=== PATIENT | female | born 2000 | race Caucasian/White ===

== ENCOUNTER 2018-09-11 20:02 | Outpatient (CLI) | payer OTHER ==
[2018-09-11 21:20] LABS: ADD UMIC YES; UR ASCORBIC ACID NEGATIVE (NEGATIVE); UR BACTERIA FEW /HPF (NONE SEEN); UR BILIRUBIN (Dip) NEGATIVE (NEGATIVE); UR BLOOD (Dip) NEGATIVE (NEGATIVE); UR CLARITY SLIGHTLY CLOUDY (CLEAR); UR COLOR YELLOW (YELLOW); UR GLUCOSE (Dip) NEGATIVE (NEGATIVE); UR KETONES (Dip) NEGATIVE (NEGATIVE); UR LEUKOCYTE ESTERASE (Dip) 2+ Leu/ul (NEGATIVE); UR NITRITE (Dip) NEGATIVE (NEGATIVE); UR RBC 1 /HPF (0-5); UR SPECIFIC GRAVITY (Dip) 1.014 (1.003-1.030); UR SQUAMOUS EPITHELIAL CELL MODERATE /HPF (FEW); UR TOTAL PROTEIN (Dip) 1+ mg/dl (NEGATIVE); UR UROBILINOGEN (Dip) NEGATIVE (NEGATIVE); UR WBC 22 /HPF (0-5)
[2018-09-11 21:53] LABS: RUPTURE FETAL MEMBRANES NEGATIVE (NEGATIVE)
[2018-09-11] MEDS ORDERED: TERBUTALINE 1 ML (22:41)
[2018-09-11] MEDS: TERBUTALINE 1 MG/ML INJ SC (22:44)
== END 2018-09-12 01:21 | disposition home or self-care (01) ==
LOC: OBT 20:02 → L-D 20:03
DX: O47.03 False labor before 37 completed weeks of gestation, third trimester (principal); O36.8130 Decreased fetal movements, third trimester, not applicable or unspecified; Z3A.35 35 weeks gestation of pregnancy
CPT/HCPCS: 76818; 81001; 84112; 96372

== ENCOUNTER 2018-09-19 14:09 | Inpatient (IN) | payer OTHER ==
[2018-09-19] MEDS ORDERED: METHYLERGONOVINE 0.2 MG INJ IM (15:30)
[2018-09-19] MEDS ORDERED: MISOPROSTOL 200 MCG TAB PR ×2 (15:30→20:30)
[2018-09-19] MEDS ORDERED: OXYTOCIN 30 UNITS/LR 500 ML IV ×2 (15:30)
[2018-09-19] MEDS ORDERED: LIDOCAINE 1% (MPF) 30 ML INJ INJ (15:30)
[2018-09-19] MEDS ORDERED: CARBOPROST 250 MCG INJ IM (15:30)
[2018-09-19 15:55] LABS: ADD MAN DIFF? NO
[2018-09-19 15:58] LABS: WHITE BLOOD COUNT 10.3 10^3/ul (4.8-10.8)
[2018-09-19 15:58] LABS: BASOPHILS % 0.3 % (0.0-2.0); EOSINOPHILS # 0.1 10^3/ul (0.0-0.5); EOSINOPHILS % 0.6 % (0.0-7.0); HEMATOCRIT 35.4 % (37.0-47.0); HEMOGLOBIN 11.8 g/dl (12.0-16.0); LYMPHOCYTES # 1.9 10^3/ul (0.8-2.9); LYMPHOCYTES % 18.5 % (18.0-55.0); MEAN CORPUSCULAR HEMOGLOBIN 29.6 pg (29.0-33.0); MEAN CORPUSCULAR HGB CONC 33.3 g/dl (32.0-37.0); MEAN CORPUSCULAR VOLUME 88.9 fl (72.0-104.0); MEAN PLATELET VOLUME 10.8 fl (7.4-10.4); MONOCYTE # 0.7 10^3/ul (0.3-0.9); MONOCYTES % 6.9 % (0.0-13.0); NEUTROPHIL # 7.5 10^3/ul (1.6-7.5); NEUTROPHILS % 72.8 % (30.0-74.0); PLATELET COUNT 177 10^3/UL (140-415); RED BLOOD COUNT 3.98 10^6/ul (4.20-5.40); RED CELL DISTRIBUTION WIDTH 12.3 % (11.5-14.5)
[2018-09-19 16:07] LABS: ADD UMIC YES; UR ASCORBIC ACID NEGATIVE (NEGATIVE); UR BILIRUBIN (Dip) NEGATIVE (NEGATIVE); UR BLOOD (Dip) NEGATIVE (NEGATIVE); UR CLARITY SLIGHTLY CLOUDY (CLEAR); UR COLOR STRAW (YELLOW); UR GLUCOSE (Dip) NEGATIVE (NEGATIVE); UR KETONES (Dip) NEGATIVE (NEGATIVE); UR LEUKOCYTE ESTERASE (Dip) 2+ Leu/ul (NEGATIVE); UR NITRITE (Dip) NEGATIVE (NEGATIVE); UR RBC 2 /HPF (0-5); UR SPECIFIC GRAVITY (Dip) 1.006 (1.003-1.030); UR SQUAMOUS EPITHELIAL CELL FEW /HPF (FEW); UR TOTAL PROTEIN (Dip) NEGATIVE (NEGATIVE); UR UROBILINOGEN (Dip) NEGATIVE (NEGATIVE); UR WBC 9 /HPF (0-5)
[2018-09-19] MEDS: LACTATED RINGER'S 1,000 ML IV ×2 (16:12→20:31)
[2018-09-19 16:15] LABS: PROTIME 11.2 Sec (11.9-14.9); PT RATIO 0.9
[2018-09-19 16:16] LABS: PARTIAL THROMBOPLASTIN TIME 26.2 Sec (23.0-35.0)
[2018-09-19 16:36] LABS: ALANINE AMINOTRANSFERASE 16 IU/L (13-69); ALBUMIN 3.1 g/dl (3.3-4.9); ALKALINE PHOSPHATASE 227 IU/L (42-121); ANION GAP 6 (5-13); ASPARTATE AMINO TRANSFERASE 24 IU/L (15-46); BILIRUBIN,INDIRECT 0.1 mg/dl (0-1.1); BILIRUBIN,TOTAL 0.1 mg/dl (0.2-1.3); BLOOD UREA NITROGEN 8 mg/dl (7-20); CALCIUM 9.1 mg/dl (8.4-10.2); CARBON DIOXIDE 22 mmol/L (21-31); CHLORIDE 110 mmol/L (97-110); CREATININE 0.43 mg/dl (0.44-1.00); Estimated GFR > 60 mL/min (>60); GLUCOSE 79 mg/dl (70-220); POTASSIUM 3.7 mmol/L (3.5-5.1); SODIUM 138 mmol/L (135-144); TOTAL PROTEIN 6.2 g/dl (6.1-8.1)
[2018-09-19 17:28] LABS: HEPATITIS B SURFACE ANTIGEN NEGATIVE (NEGATIVE)
[2018-09-19 20:23] LABS: URIC ACID 6.1 mg/dl (3.1-7.9)
[2018-09-19] MEDS ORDERED: OXYCODONE/ACETAMINOPHEN (5/325) TAB PO (20:30)
[2018-09-19] MEDS ORDERED: NA PHOSPHATE/BIPHOS 133 ML ENEMA PR (20:30)
[2018-09-19] MEDS ORDERED: LANOLIN HPA 1 PKT TOP (20:30)
[2018-09-19] MEDS ORDERED: CEFAZOLIN 2 GM/50 ML (PMX) 50 ML IVPB (20:30)
[2018-09-19] MEDS ORDERED: morphine SULFATE/PF (10 MG/10 ML) INJ (20:58)
[2018-09-19] MEDS ORDERED: FENTAnyl 50 MCG/ML VIAL (20:58)
[2018-09-19] MEDS: SENNA/DOCUSATE NA (8.6MG/50MG) TAB PO (21:00)
[2018-09-19] MEDS ORDERED: ONDANSETRON 4 MG INJ (21:29)
[2018-09-19] MEDS ORDERED: DEXAMETHASONE 4 MG/ML 1 ML INJ (21:29)
[2018-09-19] MEDS ORDERED: DIPHENHYDRAMINE 50 MG INJ IV (22:00)
[2018-09-19] MEDS ORDERED: ONDANSETRON 4 MG INJ IV (22:00)
[2018-09-19] MEDS ORDERED: ZOLPIDEM 5 MG TAB PO (22:00)
[2018-09-19] MEDS ORDERED: NALOXONE (0.4 MG/ML) INJ IV (22:00)
[2018-09-19] MEDS ORDERED: HYDROmorphONE 0.5 MG/0.5 ML SYG IV ×2 (22:00)
[2018-09-19] MEDS ORDERED: MIDAZOLAM 1 MG/ML 2 ML INJ (22:05)
[2018-09-19] MEDS ORDERED: KETAMINE (50 MG/ML) 10 ML VIAL (22:05)
[2018-09-19] MEDS: KETOROLAC 30 MG INJ IV (22:53)
[2018-09-19] MEDS: OXYTOCIN 30 UNITS/LR 500 ML IV (23:25)
[2018-09-20] MEDS: LACTATED RINGER'S 1,000 ML IV ×3 (03:10→20:30)
[2018-09-20 05:14] LABS: ADD MAN DIFF? NO
[2018-09-20 05:25] LABS: WHITE BLOOD COUNT 14.5 10^3/ul (4.8-10.8)
[2018-09-20 05:25] LABS: BASOPHILS % 0.3 % (0.0-2.0); HEMATOCRIT 32.5 % (37.0-47.0); LYMPHOCYTES # 1.5 10^3/ul (0.8-2.9); MEAN CORPUSCULAR HEMOGLOBIN 30.4 pg (29.0-33.0); MEAN CORPUSCULAR HGB CONC 33.8 g/dl (32.0-37.0); MEAN CORPUSCULAR VOLUME 89.8 fl (72.0-104.0); MEAN PLATELET VOLUME 11.2 fl (7.4-10.4); MONOCYTE # 0.4 10^3/ul (0.3-0.9); MONOCYTES % 2.8 % (0.0-13.0); NEUTROPHIL # 12.5 10^3/ul (1.6-7.5); PLATELET COUNT 173 10^3/UL (140-415); RED BLOOD COUNT 3.62 10^6/ul (4.20-5.40); RED CELL DISTRIBUTION WIDTH 12.2 % (11.5-14.5)
[2018-09-20] MEDS: IBUPROFEN 600 MG TAB PO ×5 (05:57→23:53)
[2018-09-20] MEDS: KETOROLAC 30 MG INJ IV ×2 (05:59→15:38)
[2018-09-20] MEDS: SENNA/DOCUSATE NA (8.6MG/50MG) TAB PO ×2 (10:23→21:54)
[2018-09-20 15:25] LABS: RAPID PLASMA REAGIN NONREACTIVE (NR)
[2018-09-21] MEDS: LACTATED RINGER'S 1,000 ML IV (04:30)
[2018-09-21] MEDS: IBUPROFEN 600 MG TAB PO ×3 (06:56→17:45)
[2018-09-21] MEDS: SENNA/DOCUSATE NA (8.6MG/50MG) TAB PO ×2 (09:09→21:12)
[2018-09-21] MEDS: OXYCODONE/ACETAMINOPHEN (5/325) TAB PO ×2 (11:45→16:44)
[2018-09-22] MEDS: IBUPROFEN 600 MG TAB PO ×3 (00:25→12:39)
[2018-09-22] MEDS: MEASLES,MUMPS,RUBELLA VACCINE INJ SC* (09:00)
[2018-09-22] MEDS: DIPHTH/TET/ACEL PERTUSS (ADULT) 0.5 ML VIAL IM* (09:00)
[2018-09-22] MEDS: SENNA/DOCUSATE NA (8.6MG/50MG) TAB PO (10:03)
[2018-09-22] MEDS: OXYCODONE/ACETAMINOPHEN (5/325) TAB PO (14:50)
== END 2018-09-22 17:41 | disposition home or self-care (01) | DRG 788 ==
LOC: OBT 14:09 → MS1 09-20 01:09 → L-D 14:09 → OBT 15:10 → L-D 15:10
PROC: 10D00Z1 Extraction of Products of Conception, Low, Open Approach (ICD-10-PCS; principal; 2018-09-19 21:00)
PROC: 3E033VJ Introduction of Other Hormone into Peripheral Vein, Percutaneous Approach (ICD-10-PCS; 2018-09-19 21:00)
DX: O76 Abnormality in fetal heart rate and rhythm complicating labor and delivery (principal); O35.8XX0 Maternal care for other (suspected) fetal abnormality and damage, not applicable or unspecified; Z3A.37 37 weeks gestation of pregnancy; Z37.0 Single live birth
CPT/HCPCS: 76818; 80053; 81001; 84560; 85025; 85384; 85610; 85730; 86592; 86850; 86900; 86901; 87340; 88307; 99464